=== PATIENT | male | born 1935 | race Two or more races ===

== ENCOUNTER 2016-08-14 13:47 | Emergency (ER) | payer MEDICARE, MEDICAID ==
[~2016-08-14] VITALS: Ht 188 cm; Wt 77.1 kg
[2016-08-14 14:09] LABS: BASOPHILS # (AUTO) 0.1 /CMM (0.0-0.2); EOSINOPHILS % (AUTO) 0.3 % (0.0-6.0); HEMATOCRIT 40 % (39-51); HEMOGLOBIN 13.4 g/dL (13.5-17.5); LYMPHOCYTES # (AUTO) 0.7 /CMM (0.8-4.8); LYMPHOCYTES % (AUTO) 8.1 % (20.0-44.0); MEAN CORPUSCULAR HEMOGLOBIN 31 PG (26.0-33.0); MEAN CORPUSCULAR HGB CONC 33 g/dl (31.0-36.0); MEAN CORPUSCULAR VOLUME 93 fL (80-96); MONOCYTES # (AUTO) 0.4 /CMM (0.1-1.30); MONOCYTES % (AUTO) 5.3 % (2.0-12.0); NEUTROPHILS # (AUTO) 7.1 /CMM (1.8-8.9); NEUTROPHILS % (AUTO) 85.3 % (43.0-81.0); PLATELET COUNT (AUTO) 299 /CMM (150-450); RDW COEFFICIENT OF VARIATION 13.3 (11.5-15.0); RED BLOOD CELL COUNT(AUTO) 4.34 MIL/uL (4.5-6.0); WHITE BLOOD COUNT (AUTO) 8.3 K/uL (4.3-11.0)
[2016-08-14 14:25] LABS: CALCIUM, SERUM 8.2 mg/dL (8.5-10.1); CARBON DIOXIDE 24 mmol/L (21-32); CHLORIDE 107 mmol/L (98-107); CREATININE 1.5 mg/dL (0.6-1.3); GLUCOSE 148 mg/dL (74-106); POTASSIUM 3.4 mmol/L (3.5-5.1); SODIUM SERUM 142 mmol/L (136-145); UREA NITROGEN, BLOOD 30 mg/dL (7-18)
--- NOTE | 2016-08-14 14:27 | NUR ---
ANGELA NOVA FROM [facility] FOR [facility] FOR 2 DAYS, PATIENT IS VERBALLY RESPONSIVE, A/OX 4, DOES NOT COMPLAIN OF FEELING WEAK, AT [facility] ARRIVAL, PATIENT PLACED ON MONITOR,
[2016-08-14 14:31] LABS: ALANINE AMINOTRANSFERASE 26 U/L (12-78); ALKALINE PHOSPHATASE 104 U/L (46-116); ASPARTATE AMINOTRANSFERASE 29 U/L (15-37); BILIRUBIN,DIRECT 0.1 mg/dL (0.0-0.2); BILIRUBIN,TOTAL 0.2 mg/dL (0.2-1.0); LIPASE 363 U/L (73-393); TOTAL PROTEIN, SERUM 7.3 g/dL (6.4-8.2)
[2016-08-14] MEDS ORDERED: IV NS 0.9% 500 ML IV ONE ×2 (14:37→17:02)
[2016-08-14] MEDS ORDERED: IV SET PRIMARY 1 EA INFUS.SET MC ONE (14:37)
[2016-08-14] MEDS ORDERED: IV NS 0.9% 1,000 ML BAG IV ONE ×2 (15:00→17:00)
[2016-08-14] MEDS ORDERED: AMLO10TA2 PO (15:27)
[2016-08-14] MEDS ORDERED: ESOM40CA PO (15:27)
--- NOTE | 2016-08-14 15:27 | NUR ---
PATIENT CANNOT PROVIDE URINE AND DOES NOT WANT TO BE CATHETERIZED, MADE AWARE,
[2016-08-14] MEDS ORDERED: RISP0.253 PO (15:28)
[2016-08-14] MEDS ORDERED: FLUO-120 PO (15:28)
[2016-08-14] MEDS ORDERED: MIRT15TA7 PO (15:28)
[2016-08-14] MEDS ORDERED: TAMS0.4C34 PO (15:28)
[2016-08-14] MEDS ORDERED: LISI10TA5 PO (15:28)
--- NOTE | 2016-08-14 17:24 | NUR ---
CALLED [facility] FOR TRANSPORT BACK TO [facility], ETA 45 MIN
[2016-08-14 18:28] VITALS: BP 105/59
== END 2016-08-14 18:28 | disposition home or self-care (01) ==
LOC: ER 13:52
DX: R19.7 Diarrhea, unspecified (principal); I10 Essential (primary) hypertension; F32.9 Major depressive disorder, single episode, unspecified; D64.9 Anemia, unspecified
CPT/HCPCS: 36415; 80048; 80076; 83690; 85025; 93005; 99285; A4606; J7040 ×2; Z7610